=== PATIENT | male | born 1950 | race African-American/Black ===

== ENCOUNTER 2017-10-23 08:59 | Emergency (ER) | payer OTHER ==
[~2017-10-23] VITALS: Ht 172.7 cm; Wt 63.0 kg
[~2017-10-23 08:59] MED LIST: ALBU2.5V13 IH; ASCO500C15 PO; ASPI-1159 PO; CHOL100062 PO; DEXA4TAB PO; FERR240T6 PO; GABA-529 PO; HYDR-523 PO; IBUP-2030 PO; LENA25CA PO; MORP15TA67 PO; OXYC-662 PO; P20 PO; Theophylline Anhydrous PO
[2017-10-23 09:16] VITALS: BP 122/92
== END 2017-10-23 09:55 | disposition left against medical advice (07) ==
LOC: ER 08:59
DX: R06.02 Shortness of breath (principal); Z53.21 Procedure and treatment not carried out due to patient leaving prior to being seen by health care provider